=== PATIENT | male | born 1995 | race Asian ===

== ENCOUNTER 2020-08-23 20:50 | Emergency (ER) | payer SELFPAY ==
[2020-08-24 00:06] LABS: BUN/Creatinine Ratio 8; Blood Urea Nitrogen 10 mg/dL (9-20); Calcium 9.8 mg/dL (8.4-10.2); Hemolysis Index 4
[2020-08-24 00:08] LABS: Basophils % (Auto) 0.5 % (0.0-1.8); Hematocrit 41.7 % (35.5-45.6); Hemoglobin 13.8 gm/dl (11.8-15.2); Lymphocytes # (Auto) 1.9 K/mm3 (1.2-5.4); Lymphocytes % (Auto) 27.6 % (13.4-35.0); Mean Corpuscular HGB Conc 33 % (32-34); Mean Corpuscular Volume 77 fl (84-94); Monocytes # (Auto) 0.9 K/mm3 (0.0-0.8); Monocytes % (Auto) 13.7 % (0.0-7.3); Platelet Count 193 K/mm3 (140-440); Red Blood Count 5.41 M/mm3 (3.65-5.03); Red Cell Distribution Width 15.1 % (13.2-15.2)
--- NOTE | 2020-08-24 01:39 | Cat Scan Report ---
CT NECK WITH INTRAVENOUS CONTRAST AND MULTIPLANAR RECONSTRUCTION CLINICAL HISTORY: Patient has a boil under his tongue, possible abscess TECHNIQUE: 2.5 mm thick contiguous axial scans were obtained from the skull base down to the aortic arch during intravenous contrast administration. In addition to evaluation of axial source images sagittal and co zandra multiplanar reconstructions were produced and reviewed for this report. All CT imaging studies performed at this facility utilize dose modulation, iterative reconstruction o r weight based dosing, if appropriate, to obtain the lowest achievable radiation dose. FINDINGS: There is a large sialolith in the distal aspect of Yumiko's duct on the right. This stone measures a bout 17 mm in length by about 5 mm in diameter. There is dilatation of the submandibular salivary gla nd duct proximal to the stone. There is dilatation of the intraglandular ducts within the right subma ndibular salivary gland. There is no indication of inflammatory change around the right submandibular salivary gland. The right submandibular salivary gland is slightly smaller than that on the left is of increased attenuation compared left. Parotid glands have a normal appearance. No abnormalities are seen along the course of the airway. Nasopharynx, oropharynx, hypopharynx, laryn x and visualized portions of the subglottic airway all have an unremarkable appearance. There is no indication of cervical lymphadenopathy. No abnormalities are seen in evaluation of the oral cavity and tongue. The floor the mouth has a norm al appearance. Evaluation of the nasal cavity reveals no abnormality. The paranasal sinuses are free from inflammato ry mucosal disease. Evaluation of the orbits reveals no abnormality. The thyroid gland is normal in size and homogeneous in attenuation. No focal thyroid lesions are iden tified. Evaluation of the cervical spine reveals no significant abnormality. Normal alignment is maintained. No significant degenerative changes are identified. Evaluation of the lung apices reveals no abnormality. There is no indication of lung nodule or infilt rate. The visualized portions of the superior mediastinum have an unremarkable appearance. Enhancement of normal vascular structures is demonstrated. No areas of abnormal contrast enhancement are identified. IMPRESSION: 1. A large sialolith is present in the distal right Hendricks's duct with dilatation of the duct proxim al to the stone. Signer Name: Arnaud Mendez MD Signed: 08/24/2020 1:34 AM Workstation Name: [id number]
[2020-08-24] MEDS ORDERED: CLINDAMYCIN 600 MG/50 mL 600 MG/50 ML BAG IV ONE (02:51)
[2020-08-24] MEDS ORDERED: methylPREDNISolone Sod Succinate 125 MG/2 ML INJ IV ONE (02:51)
[2020-08-24] MEDS ORDERED: SODIUM CHLORIDE 0.9% 1000 ML 1,000 ML IV ONE (02:51)
--- NOTE | 2020-08-24 02:52 | Emergency Department Report ---
ED ENT HPI - General Chief complaint: Skin/Abscess/Foreign Body Stated complaint: SWELLING UNDER TONGUE Time Seen by Provider: 08/24/20 02:45 Source: patient Mode of arrival: Ambulatory Limitations: No Limitations - History of Present Illness Initial comments: Patient is a 25-year-old male presents emergency room with swelling under his tongue and his right neck. Patient states his symptoms started 5 days ago and are worsening. Patient states he was seen at a [facility] and treated with Keflex. Patient states he then went to an urgent care today and was sent here to evaluate for levels angina. Patient states is difficult to swallow and talk. Patient denies throat pain. Patient states the pain is under his tongue and the right neck. Patient states he feels like his tongue is swollen. Patient denies difficulty breathing. Patient states it is difficult to swallow because of swelling under the tongue. Patient states he has been able to eat. Patient states his pain is a 10 out of 10. Patient states the pain is worse with talking and movement. Patient states the pain is better with rest. Patient denies chest pain. Patient denies fever and chills. Patient denies recent travel. Patient denies recent international travel. Patient denies exposure to the novel coronavirus. Patient denies sick contacts. Patient denies fever and chills. Patient denies cough. Patient denies diarrhea. Patient denies coming in contact with anybody with symptoms of the novel coronavirus. MD complaint: difficulty swallowing Severity: severe Severity scale (0 -10): 10 Quality: stabbing Consistency: constant Improves with: rest Worsens with: swallowing, eating, movement Associated Symptoms: gum swelling, pain with swallowing. denies: fever, cough, toothache, sore throat, tinnitus, hearing loss, discharge from ear, rhinorrhea - Related Data Previous Rx's Medication Instructions Recorded Last Taken Type Clindamycin [Clindamycin CAP] 300 mg PO Q8H 30 Days #10 capsule 08/24/20 Unknown Rx methylPREDNISolone [Medrol 4MG 4 mg PO DAILY 6 Days #1 tab.ds.pk 08/24/20 Unknown Rx DOSEPAK (21 tabs)] Allergies Allergy/AdvReac Type Severity Reaction Status Date / Time No Known Allergies Allergy Unverified 08/23/20 23:11 ED Dental HPI - General Chief complaint: Skin/Abscess/Foreign Body Stated complaint: SWELLING UNDER TONGUE Time Seen by Provider: 08/24/20 02:45 Source: patient Mode of arrival: Ambulatory Limitations: No Limitations - Related Data Previous Rx's Medication Instructions Recorded Last Taken Type Clindamycin [Clindamycin CAP] 300 mg PO Q8H 30 Days #10 capsule 08/24/20 Unknown Rx methylPREDNISolone [Medrol 4MG 4 mg PO DAILY 6 Days #1 tab.ds.pk 08/24/20 Unknown Rx DOSEPAK (21 tabs)] Allergies Allergy/AdvReac Type Severity Reaction Status Date / Time No Known Allergies Allergy Unverified 08/23/20 23:11 ED Review of Systems ROS: Stated complaint: SWELLING UNDER TONGUE Other details as noted in HPI Constitutional: denies: chills, fever Eyes: denies: eye pain, eye discharge, vision change ENT: as per HPI. denies: ear pain, throat pain Respiratory: denies: cough, shortness of breath, wheezing Cardiovascular: denies: chest pain, palpitations Endocrine: no symptoms reported Gastrointestinal: denies: abdominal pain, nausea, diarrhea Genitourinary: denies: urgency, dysuria Musculoskeletal: denies: back pain, joint swelling, arthralgia Skin: denies: rash, lesions Neurological: denies: headache, weakness, paresthesias Psychiatric: denies: anxiety, depression Hematological/Lymphatic: denies: easy bleeding, easy bruising ED Past Medical Hx - Past Medical History Previous Medical History?: No - Surgical History Past Surgical History?: No - Family History Family history: no significant - Social History Smoking Status: Never Smoker Substance Use Type: None - Medications Home Medications: Home Medications Medication Instructions Recorded Confirmed Last Taken Type Clindamycin [Clindamycin CAP] 300 mg PO Q8H 30 Days #10 capsule 08/24/20 Unknown Rx methylPREDNISolone [Medrol 4MG 4 mg PO DAILY 6 Days #1 tab.ds.pk 08/24/20 Unknown Rx DOSEPAK (21 tabs)] ED Physical Exam - General Limitations: No Limitations General appearance: alert, in no apparent distress - Head Head exam: Present: atraumatic, normocephalic - Eye Eye exam: Present: normal appearance, PERRL Pupils: Present: normal accommodation - ENT ENT exam: Present: mucous membranes moist, other (Swelling noted underneath the tongue. No lymph nodes noted) - Neck Neck exam: Present: normal inspection, full ROM. Absent: tenderness, meningismus - Respiratory Respiratory exam: Present: normal lung sounds bilaterally. Absent: respiratory distress, wheezes, rales - Cardiovascular Cardiovascular Exam: Present: regular rate, normal rhythm. Absent: systolic murmur, diastolic murmur, rubs, gallop - GI/Abdominal GI/Abdominal exam: Present: soft, normal bowel sounds. Absent: tenderness - Rectal Rectal exam: Present: deferred - Extremities Exam Extremities exam: Present: normal inspection - Back Exam Back exam: Present: normal inspection - Neurological Exam Neurological exam: Present: alert, oriented X3 - Psychiatric Psychiatric exam: Present: normal affect, normal mood - Skin Skin exam: Present: warm, dry, intact, normal color. Absent: rash ED Course Vital Signs 08/23/20 08/24/20 22:43 03:29 Temperature 99.0 F Pulse Rate 56 L Respiratory 12 18 Rate Blood Pressure 132/76 O2 Sat by Pulse 100 100 Oximetry - Reevaluation(s) Reevaluation #1: I discussed results with patient. Patient agrees with plan of care. 08/24/20 02:45 Reevaluation #2: Patient states he is feeling much better. Patient states he is able to talk now. Patient is able to swallow. Patient tolerated p.o. intake. Patient states the pain is a 2 out of 10. Patient states the swelling has gone down dramatically. Patient has received fluids, antibiotics and steroids. I discussed all results and clinical findings with patient. I discussed plan of care with patient. Patient agrees with plan of care. Patient is stable for discharge. Patient will be discharged home. Patient given discharge instructions. Patient voiced understanding of discharge instructions. 08/24/20 04:58 ED Medical Decision Making - Lab Data Result diagrams: 08/23/20 23:28 08/23/20 23:28 - Radiology Data Radiology results: report reviewed CT NECK WITH INTRAVENOUS CONTRAST AND MULTIPLANAR RECONSTRUCTION CLINICAL HISTORY: Patient has a boil under his tongue, possible abscess TECHNIQUE: 2.5 mm thick contiguous axial scans were obtained from the skull base down to the aortic arch during intravenous contrast administration. In addition to evaluation of axial source images sagittal and coronal multiplanar reconstructions were produced and reviewed for this report. All CT imaging studies performed at this facility utilize dose modulation, iterative reconstruction or weight based dosing, if appropriate, to obtain the lowest achievable radiation dose. FINDINGS: There is a large sialolith in the distal aspect of [place]'s duct on the right. This stone measures about 17 mm in length by about 5 mm in diameter. There is dilatation of the submandibular salivary gland duct proximal to the stone. There is dilatation of the intraglandular ducts within the right submandibular salivary gland. There is no indication of inflammatory change around the right submandibular salivary gland. The right submandibular salivary gland is slightly smaller than that on the left is of increased attenuation compared left. Parotid glands have a normal appearance. No abnormalities are seen along the course of the airway. Nasopharynx, oropharynx, hypopharynx, larynx and visualized portions of the subglottic airway all have an unremarkable appearance. There is no indication of cervical lymphadenopathy. No abnormalities are seen in evaluation of the oral cavity and tongue. The floor the mouth has a normal appearance. Evaluation of the nasal cavity reveals no abnormality. The paranasal sinuses are free from inflammatory mucosal disease. Evaluation of the orbits reveals no abnormality. The thyroid gland is normal in size and homogeneous in attenuation. No focal thyroid lesions are identified. Evaluation of the cervical spine reveals no significant abnormality. Normal alignment is maintained. No significant degenerative changes are identified. Evaluation of the lung apices reveals no abnormality. There is no indication of lung nodule or infiltrate. The visualized portions of the superior mediastinum have an unremarkable appearance. Enhancement of normal vascular structures is demonstrated. No areas of abnormal contrast enhancement are identified. IMPRESSION: 1. A large sialolith is present in the distal right Yumiko's duct with dilatation of the duct proximal to the stone. - Medical Decision Making Patient is a 25-year-old male who presents emergency room with complaints of sublingual swelling. Patient also has significant pain. Patient pain was worse with talking and swallowing. Patient had labs done which were essentially unremarkable. Patient then had a CT scan of the soft tissue neck. Patient CT was positive for a salivary gland infection with a stone. Patient was given f luids, antibiotics and steroids. Patient was placed on Keflex by an outpatient facility. Patient responded well to treatment. Patient left ER essentially pain-free. Patient given a prescription for Medrol, Clinda and instructed to eat sour foods. Patient given discharge instructions. Patient stable for discharge. - Differential Diagnosis Ludewig's angina, salivary gland infection, salivary gland stone. Critical care attestation.: If time is entered above; I have spent that time in minutes in the direct care of this critically ill patient, excluding procedure time. ED Disposition Clinical Impression: Sublingual gland swelling, Salivary gland infection, Oral pain, Salivary gland stone, Sialadenitis Disposition: DC-01 TO HOME OR SELFCARE Is pt being admited?: No Does the pt Need Aspirin: No Condition: Stable Instructions: Sialoadenitis (ED), Sialorrhea (ED) Additional Instructions: Patient to follow-up with primary care in 2 to 3 days. Patient to follow-up with ENT in 2 to 3 days. Patient to rest. Patient to increase water. Patient to eat lemon drops and sour candy or stepan. Patient to continue the Keflex. Patient to take Tylenol or ibuprofen as needed for pain. Patient to take meds as directed. Patient to return to the ER if condition worsens, changes or new symptoms arise. Prescriptions: Clindamycin [Clindamycin CAP] 300 mg PO Q8H 30 Days #10 capsule methylPREDNISolone [Medrol 4MG DOSEPAK (21 tabs)] 4 mg PO DAILY 6 Days #1 tab.jef Referrals: PRIMARY CARE, [Primary Care Provider] - 2-3 Days Time of Disposition: 05:42
[2020-08-24 06:15] VITALS: BP 126/76
== END 2020-08-24 06:15 | disposition home or self-care (01) ==
LOC: ED 20:50
DX: K11.3 Abscess of salivary gland (principal); K11.20 Sialoadenitis, unspecified; Z79.899 Other long term (current) drug therapy
CPT/HCPCS: 36415; 70491; 80048; 85025; 96365; 96375; 99284; J2930; J7030; Q9967